=== PATIENT | male | born 1935 | race Two or more races ===

== ENCOUNTER 2017-01-30 05:50 | Inpatient (IN) | payer MEDICARE, BC ==
[~2017-01-30 05:50] MED LIST: ATIVAN0.5 M1 PO; BUPROPION HCL150 M3 PO; BUSPIRONE HCL5 M1 PO; CELEXA40 MG PO; COREG25 M1 PO; COREG3.125 MG PO; CRANBERRY450 M4 PO; FEOSOL325 M1 PO; FLOMAX0.4 M1 PO; GABAPENTIN300 MG PO; GENERLAC PO; GLUCOTROL XL2.5 M1 PO; IRON325 MG PO; LEVOTHROID50 MCG PO; LEVOTHYROXINE25 MC3 PO; LISINOPRIL40 MG PO; LOVASTATIN20 M2 PO; LOVASTATIN20 MG PO; MELATONIN5 M5 PO; MIRALAX17 G2 PO; NEURONTIN100 M1 PO; NORVASC5 M2 PO; PERCOCET 5-3251 EACH PO; PRILOSEC OTC20 M1 PO; PRINIVIL10 M1 PO; STOOL SOFTENER100 M3 PO; VITAMIN B-121000 MC1 PO; VITAMIN D3400 UNI5 PO
[2017-01-30 06:51] LABS: URINE APPEARANCE CLEAR; URINE BILIRUBIN NEGATIVE (NEG); URINE BLOOD NEGATIVE (NEG); URINE COLOR YELLOW; URINE GLUCOSE (UA) NEGATIVE (NEG); URINE KETONE NEGATIVE (NEG); URINE LEUKOCYTE ESTERASE NEGATIVE (NEG); URINE NITRITE NEGATIVE (NEG); URINE PROTEIN SMALL (NEG); URINE SPECIFIC GRAVITY 1.015 (1.003-1.030)
[2017-01-30 06:57] LABS: BASO % 0.4 % (0-2); EOS % 4.4 % (0-7); EOSINOPHIL ABSOLUTE COUNT 0.3 tho/cmm (0.0-0.7); HCT-HEMATOCRIT 34.6 % (36.0-53.5); HGB-HEMOGLOBIN 11.6 gm/dl (13.5-17.0); IMMATURE GRANULOCYTES ABSOLUTE 0.04 tho/cmm (0-0.03); IMMATURE GRANULOCYTES PERCENT 0.5 % (0-0.3); LYMPH % 12.2 % (20-45); LYMPH ABSOLUTE COUNT 0.9 tho/cmm (0.8-4.5); MCHC MEAN CORPUSCULAR HGB CONC 33.5 % (32.0-36.0); MCV (MEAN CELL VOLUME) 98.3 fl (82.0-96.0); MEAN PLATELET VOLUME 9.3 cmc (9.4-12.4); MONO % 10.6 % (0-12); MONOCYTE ABSOLUTE COUNT 0.8 tho/cmm (0.0-1.2); NEUTROPHIL ABSOLUTE COUNT 5.2 tho/cmm (1.6-8.0); NEUTROPHIL-AUTOMATED 5.2 tho/cmm (1.6-8.0); NEUTROPHILS % 71.9 % (40-80); PLATELET COUNT 227 tho/cmm (150-450); RED BLOOD COUNT 3.52 mil/cmm (4.40-5.70); RED CELL DISTRIBUTION WIDTH 15.6 % (12.4-16.4); WHITE BLOOD COUNT 7.3 tho/cmm (4.0-10.0)
[2017-01-30 07:01] LABS: URINE EPITHELIAL CELLS 0-2 /[HPF] (0-10); URINE WBC 0-1 /[HPF] (0-5)
[2017-01-30 07:08] LABS: ANION GAP 11 mmol/L (0-20); BLOOD UREA NITROGEN 34 mg/dl (6-24); CALCIUM 9.3 mg/dl (8.5-10.5); CARBON DIOXIDE-VENOUS 28 mmol/L (22-32); CHLORIDE 100 mmol/l (96-110); CREATININE 1.67 mg/dl (0.60-1.30); GLUCOSE 105 mg/dL (70-110); POTASSIUM 4.3 mmol/L (3.7-5.1); SODIUM 135 mmol/L (135-145); eGFR VALUE FOR BLACK 44 mL/Min
[2017-01-30] MEDS ORDERED: ACETAMINOPHEN325 M2 PO (14:05)
[2017-01-30] MEDS ORDERED: DEEP SEA45 M1 (14:07)
[2017-01-30] MEDS ORDERED: VENTOLIN HFA18 G2 PO (14:13)
[2017-01-31 06:51] LABS: BASO % 0.1 % (0-2); EOS % 0.4 % (0-7); EOSINOPHIL ABSOLUTE COUNT 0.1 tho/cmm (0.0-0.7); HCT-HEMATOCRIT 28.7 % (36.0-53.5); HGB-HEMOGLOBIN 9.7 gm/dl (13.5-17.0); IMMATURE GRANULOCYTES ABSOLUTE 0.05 tho/cmm (0-0.03); IMMATURE GRANULOCYTES PERCENT 0.4 % (0-0.3); LYMPH % 8.1 % (20-45); LYMPH ABSOLUTE COUNT 1.1 tho/cmm (0.8-4.5); MCH (MEAN CORPUSCULAR HGB) 32.6 pg (28.0-32.0); MCHC MEAN CORPUSCULAR HGB CONC 33.8 % (32.0-36.0); MCV (MEAN CELL VOLUME) 96.3 fl (82.0-96.0); MEAN PLATELET VOLUME 9.4 cmc (9.4-12.4); MONOCYTE ABSOLUTE COUNT 1.2 tho/cmm (0.0-1.2); NEUTROPHIL ABSOLUTE COUNT 10.7 tho/cmm (1.6-8.0); NEUTROPHIL-AUTOMATED 10.7 tho/cmm (1.6-8.0); PLATELET COUNT 198 tho/cmm (150-450); RED BLOOD COUNT 2.98 mil/cmm (4.40-5.70); RED CELL DISTRIBUTION WIDTH 15.1 % (12.4-16.4)
[2017-01-31 06:53] LABS: WHITE BLOOD COUNT 13.1 tho/cmm (4.0-10.0)
== END 2017-02-07 15:39 | DRG 467 ==
LOC: SHSC 05:50 → ORE 07:28 → PACU 11:11 → 5EA 12:10
PROVIDERS: ADMIT Orthopaedic Surgery
PROC: 0SRC0J9 Replacement of Right Knee Joint with Synthetic Substitute, Cemented, Open Approach (ICD-10-PCS; principal; 2017-01-30)
PROC: 0SPC09Z Removal of Liner from Right Knee Joint, Open Approach (ICD-10-PCS; 2017-01-30)
PROC: 0SPC0JZ Removal of Synthetic Substitute from Right Knee Joint, Open Approach (ICD-10-PCS; 2017-01-30)
PROC: 0SUV09Z Supplement Right Knee Joint, Tibial Surface with Liner, Open Approach (ICD-10-PCS; 2017-01-30)
PROC: 5A09357 Assistance with Respiratory Ventilation, Less than 24 Consecutive Hours, Continuous Positive Airway Pressure (ICD-10-PCS; 2017-01-30)
DX: T84.022A Instability of internal right knee prosthesis, initial encounter (principal); I48.4 Atypical atrial flutter; I50.32 Chronic diastolic (congestive) heart failure; G62.9 Polyneuropathy, unspecified; I11.9 Hypertensive heart disease without heart failure; T84.032A Mechanical loosening of internal right knee prosthetic joint, initial encounter; I25.10 Atherosclerotic heart disease of native coronary artery without angina pectoris; E78.5 Hyperlipidemia, unspecified; Z87.891 Personal history of nicotine dependence; Z85.038 Personal history of other malignant neoplasm of large intestine; K21.9 Gastro-esophageal reflux disease without esophagitis; G47.33 Obstructive sleep apnea (adult) (pediatric); E03.9 Hypothyroidism, unspecified; M19.90 Unspecified osteoarthritis, unspecified site; E53.8 Deficiency of other specified B group vitamins; I49.8 Other specified cardiac arrhythmias
CPT/HCPCS: C1713; C1776; J0171; J0690; J1885; J2270; J2795